=== PATIENT | female | born 1975 | race Caucasian/White ===

== ENCOUNTER 2019-02-19 10:02 | Emergency (ER) | payer SELFPAY ==
[~2019-02-19 10:02] MED LIST: Iopamidol 370 76% 100 ML VIAL ONE; Iopamidol 370 76% 50 ML VIAL FS ONE
[2019-02-19 10:38] LABS: Bilirubin Negative (Negative); Blood, Urine Negative (Negative); Clarity Clear (Clear); Glucose, Urine (Dipstick) Negative (Negative); Leukocyte Trace (Negative); Nitrite Negative (Negative); Protein, Urine (Dipstick) Negative (Neg-Trace); Urobilinogen 0.2 mg/dL (Less than 2)
[2019-02-19] MEDS ORDERED: Ketorolac Tromethamine 30 MG/ML VIAL ONE (10:38)
[2019-02-19 10:46] LABS: BHCG - Serum Negative (NEGATIVE); Bacteria/HPF Rare-Few HPF (None Seen); Broad Cast None Seen LPF (None Seen); Calcium Oxalate Crystals None Seen HPF (None Seen); Cellular Cast None Seen LPF (None Seen); Epithelial Cast None Seen LPF (None Seen); Fatty Cast None Seen LPF (None Seen); Mucous/LPF None Seen LPF (<2+); Other Casts None Seen LPF (None Seen); Oval Fat Bodies/HPF None Seen HPF (None Seen); Pregs Control Background? CLEAR/WHITE (CLR/WHITE); Pregs Control Bar Appear? YES (CONTROL BAR); RBC/HPF None Seen HPF (0-3); Red Blood Cell Cast None Seen LPF (None Seen); Renal Epithelial None Seen HPF (None Seen); Sperm/HPF None Seen HPF (None Seen); Squamous Epithelial 0-3 HPF (0-3); Transitional Epithelial None Seen HPF (None Seen); Trichomonas/HPF None Seen HPF (None Seen); Triple Phosphate Crystal None Seen HPF (None Seen); Unclassified Crystals None Seen HPF (None Seen); WBC/HPF 0-3 HPF (0-3); Waxy Cast None Seen LPF (None Seen); White Blood Cell Cast None Seen LPF (None Seen); Yeast-Budding None Seen HPF (None Seen); Yeast-Hyphae None Seen HPF (None Seen)
[2019-02-19 10:57] LABS: Band 1 % (5-11); Hemoglobin 13.8 g/dL (12.0-16.0); Lymphocytes 6 % (21-51); MDiff Complete? YES; Mean Corpuscular HGB CONC 32.7 g/dL (32.0-36.0); Mean Corpuscular Hemoglobin 32.2 pg (27.0-31.0); Mean Corpuscular Volume 98.5 fL (78.0-98.0); Mean Platelet Volume 6.6 fL (7.4-10.4); Monocytes 6 % (0-10); Neutrophil 87 % (42-75); Platelet Count 299 thou/uL (130-400); RBC Distribution Width 11.8 % (11.5-14.5); Small Platelets SLIGHT; White Blood Cell (WBC) Count 20.3 thou/uL (4.8-10.8)
[2019-02-19 11:06] LABS: ALT (SGPT) 14 U/L (8-55); AST (SGOT) 20 U/L (5-34); Albumin 3.9 g/dL (3.5-5.0); Alkaline Phosphatase 76 U/L (40-150); Anion Gap 16 mmol/L (10-20); BUN (Urea Nitrogen) 7 mg/dL (7.0-18.7); Bilirubin, Total 1.1 mg/dL (0.2-1.2); Calc. Creatinine Clearance 0 mL/min (70-130); Calcium 9.4 mg/dL (7.8-10.44); Carbon Dioxide 22 mmol/L (22-29); Chloride 104 mmol/L (98-107); Estimated GFR-MDRD Greater than 90; Globulin 3.6 g/dL (2.4-3.5); Glucose 100 mg/dL (70-105); Lipase 13 U/L (8-78); Potassium 4.5 mmol/L (3.5-5.1); Protein, Total 7.5 g/dL (6.0-8.3); Sodium 137 mmol/L (136-145)
[2019-02-19] MEDS ORDERED: Meropenem 1 GM in Sodium Chloride 0.9% 100 ML IVPB SCH (13:00)
--- NOTE | 2019-02-19 13:12 | CT ---
CT ABDOMEN AND PELVIS WITH CONTRAST: DATE: 02/19/2019. FINDINGS: Spiral CT of the abdomen and pelvis was performed for evaluation of right lower quadrant pain. Axial slices were acquired after giving oral and IV contrast, then coronal and sagittal reconstructions we re done. The lung bases are clear. The liver, spleen, pancreas, adrenal glands, kidneys, and abdominal aorta showed no acute findings. All mesenteric vessels fill normally off the aorta. There is no distention of bowel to suggest obstruction. A moderate amount of fecal material is seen in the colon. There is an area of questionable wall thickening medial to the cecum on some of the sl ices. The area fills completely with contrast and there is no obscuration of the fat planes around i t. Currently, I cannot confidently diagnose appendicitis. I would note that the small bowel in the left upper quadrant seems to have some prominent wall thickening, though it is not completely distend ed, so this finding is potentially marginal. Enteritis could cause such a picture, however. I would note that this does not appear to be the site where she has pain. The gallbladder is fairly small a nd decompressed but shows no wall thickening or stones. No free air or free fluid was seen. CT of the pelvis showed no pelvic masses, fluid collections of concern, or inflammatory change. No a dnexal pathology was seen. IMPRESSION: 1. Equivocal thickened area just medial to the cecum but with normal fat planes and filling of enter ic structures in this region, appendicitis cannot be confidently diagnosed at this time. 2. The gallbladder is decompressed but normal in appearance. 3. Some thickening of small bowel wall in the left upper quadrant. Since it is not distended, it is unknown whether the finding is significant or not. If real, enteritis could cause this, though I wo uld note that her pain seems elsewhere at the moment. Second opinion obtained from radiologist at [facility]. Discussed the case with Dr. Tyson at 1 246 on 02/19/2019. POS: HOME
[2019-02-19] MEDS ORDERED: Meropenem 500 MG in Sodium Chloride 0.9% 100 ML IVPB SCH (13:15)
== END 2019-02-19 13:35 | disposition short-term general hospital (02) ==
LOC: BURERS 10:02
DX: R10.31 Right lower quadrant pain (principal); F17.210 Nicotine dependence, cigarettes, uncomplicated
CPT/HCPCS: 74177; 80053; 81003; 81015; 83690; 84703; 85025; 96361; 96374; 96375; J1885; J2185; J3490; Q9967